=== PATIENT | male | born 1990 | race Caucasian/White ===

== ENCOUNTER → 2022-06-15 11:55 | Outpatient (CLI) | payer OTHER, SELFPAY ==
--- NOTE | 2022-06-15 12:11 | XR_ITS ---
FINAL REPORT CLINICAL HISTORY: PNEUMONIA, hx pneumonia, patient states he was recenltly hospitalized for pneumonia for 2 weeks , was intubated in the ICU, has been out 1 week , f/u FINDINGS: Two views of the chest were obtained. The heart size and pulmonary vascularity are within normal limits. The mediastinum is normal. There is lobular opacity in the right lower thorax, favor a loculated pleural effusion. The left lung is clear. There is no pneumothorax. The bony thorax is intact. IMPRESSION: Lobular opacity in the right lower thorax, favor a loculated pleural effusion. Recommend follow-up radiographs or chest CT. Reviewed, Interpreted and Dictated by Tavo Cobb III, MD Transcribed by Malaika Hardy Authenticated and [facility]
== END ==
PROVIDERS: PCP Nurse Practitioner Family; Visit Provider Nurse Practitioner Family
DX: J18.9 Pneumonia, unspecified organism (principal)
CPT/HCPCS: 71046

== ENCOUNTER → 2022-07-07 10:59 | Outpatient (CLI) | payer OTHER, SELFPAY ==
--- NOTE | 2022-07-07 11:06 | XR_ITS ---
FINAL REPORT CLINICAL HISTORY: PNEUMONIA COMPARISON: 06/15/2022 FINDINGS: TWO-VIEW CHEST The heart size is normal. The mediastinum is normal. There is a stable right base opacity, may represent localized infiltrate versus mass. There is no pneumothorax. IMPRESSION: Right opacity as above. Recommend follow-up radiographs or chest CT. Reviewed, Interpreted and Dictated by Tavo Cobb III, MD Transcribed by Mariangel West Authenticated and [facility]
== END ==
LOC: RAD 11:01
PROVIDERS: PCP Nurse Practitioner Family; Visit Provider Nurse Practitioner Family
DX: J18.9 Pneumonia, unspecified organism (principal)
CPT/HCPCS: 71046

== ENCOUNTER → 2022-07-20 07:06 | Outpatient (CLI) | payer OTHER, SELFPAY ==
--- NOTE | 2022-07-20 07:14 | CT_ITS ---
FINAL REPORT TECHNIQUE: Thin section axial images were obtained from the lung apices through the upper abdomen without contrast. This study was performed with techniques to keep radiation doses as low as reasonably achievable (ALARA). Individualized dose reduction techniques using automated exposure control or adjustment of mA and/or kV according to the patient's size were employed. CLINICAL HISTORY: ABN CXR FINDINGS: There are multiple small anterior mediastinal lymph nodes. No hilar lymphadenopathy is identified. There is a small right pleural effusion which extends to the fissure. There is rounded airspace disease in both the periphery of the right middle lobe and the periphery of the right lower lobe favored to represent pneumonia although infarct is not excluded. Limited, unenhanced evaluation of the upper abdomen is without acute abnormality. There is no acute osseous abnormality. IMPRESSION: Rounded opacity in the right middle lobe and right lower lobe, favor pneumonia but infarct is not excluded. Right pleural effusion. Consider follow up chest CT in 3 months. Reviewed, Interpreted and Dictated by Ailyn Yee MD Transcribed by Mariangel West Authenticated and [facility]
== END ==
LOC: RAD 07:06
PROVIDERS: PCP Nurse Practitioner Family; Visit Provider Nurse Practitioner Family
DX: R93.89 Abnormal findings on diagnostic imaging of other specified body structures (principal)
CPT/HCPCS: 71250

== ENCOUNTER 2022-09-04 12:37 | Emergency (ER) | payer OTHER, SELFPAY ==
[2022-09-04] VITALS (8 sets, daily range): BP systolic 85–114; BP diastolic 46–78; PULSE 78–95; RESP 17–20; TEMP 36.6; O2SAT 96–99; BMI 30.3
--- NOTE | 2022-09-04 12:58 | PC.NURSE ---
er md at bedside whend rounding on pts
--- NOTE | 2022-09-04 13:19 | PC.NURSE ---
Report received from YELENA Smith at bedside
[2022-09-04 13:37] LABS: Basophils % 0.8 % (0.1-2.0); Eosinophils # 0.1 K/mm3 (0.0-0.4); Eosinophils % 1.3 % (0.1-12.0); Hematocrit 43.6 % (42.0-52.0); Hemoglobin 14.3 g/dL (14.1-18.0); Lymphocytes # 1.5 K/mm3 (0.7-4.5); Lymphocytes % 37.8 % (10-50); Mean Corpuscular HGB Conc 32.7 g/dL (31.8-35.4); Mean Corpuscular Hemoglobin 29.8 pg (27.0-31.2); Mean Platelet Volume 9.8 fl (7.4-10.4); Monocytes # 0.3 K/mm3 (0.1-1.0); Monocytes % 7.7 % (1.7-9.3); Neutrophils # 2.1 K/mm3 (1.8-7.8); Neutrophils % 52.5 % (37.0-80.0); Platelet Count 148 K/mm3 (142-424); Red Blood Count 4.79 M/mm3 (4.60-6.20); Red Cell Distribution Width 20.1 % (11.5-17.5); White Blood Count 4.1 K/mm3 (4.8-10.8)
[2022-09-04 13:43] LABS: Alanine Aminotransferase 144 U/L (12-78); Albumin Level 3.4 g/dl (3.5-5.0); Albumin/Globulin Ratio 0.8 (1.1-1.8); Alkaline Phosphatase 383 U/L (38-126); Anion Gap 24.8 mEq/L (5-15); Aspartate Amino Transferase 282 U/L (17-59); Bilirubin,Direct 10.8 mg/dl (0.0-0.4); Bilirubin,Total 12.5 mg/dl (0.2-1.3); Blood Urea Nitrogen 35 mg/dl (9-20); Calcium 8.4 mg/dl (8.4-10.2); Carbon Dioxide 20 mmol/L (22.0-30.0); Chloride 97 mmol/L (98-107); Creatinine Clearance Estimated 59 mL/min (50-200); Estimated Glomerular Filt Rate 28 ml/min (>60); GFR (African American) 34 ML/MIN (>60); Globulin 4.2 g/dL (1.3-3.2); Glucose 104 mg/dl (74-100); Magnesium 1.7 mg/dl (1.6-2.3); Potassium 3.8 mmoL/L (3.5-5.1); Sodium 138 mmol/L (136-145); Total Protein,Serum 7.6 g/dl (6.3-8.2)
[2022-09-04 13:52] LABS: NT Pro Brain Natriuretic Pep. 1030 pg/mL (0-125)
--- NOTE | 2022-09-04 13:58 | PC.NURSE ---
mark from lab called with notification that it will take a little while for results of lipase due to viscosity of sample. notified
[2022-09-04 14:02] LABS: INR 1.03 (0.9-1.1); Prothrombin Time 11.1 seconds (10.1-12.5)
--- NOTE | 2022-09-04 14:02 | PC.NURSE ---
rounded on pt no complaints at this time, tap marixa at bs
[2022-09-04 14:04] LABS: Ethyl Alcohol < 10 mg/dl (0-10)
[2022-09-04 14:16] LABS: Lipase 94 U/L (23-300)
--- NOTE | 2022-09-04 14:17 | PC.NURSE ---
Dr Tomas spoke with Dr Nguyễn pt is to go to [facility]
--- NOTE | 2022-09-04 14:27 | HMH.EDGENADL ---
Discharge Plan Disposition Patient Disposition: Xfer Short-Term Hosp Condition: Good Prescriptions Prescriptions: No Action furosemide 40 mg tablet 40 mg PO DAILY Label Comments: TAKE 1 TABLET BY MOUTH ONCE DAILY metoprolol succinate 50 mg tablet extended release 24 hr 50 mg PO DAILY Label Comments: TAKE 1 TABLET BY MOUTH ONCE DAILY spironolactone 25 mg tablet 25 mg PO DAILY Label Comments: TAKE 1 TABLET BY MOUTH ONCE DAILY aspirin [Yair Chewable Aspirin] 81 mg tablet,chewable 81 mg PO DAILY Label Comments: CHEW AND SWALLOW 1 TABLET BY MOUTH ONCE DAILY Referrals Follow up/Referrals: Livia Sheriff APRN [Primary Care Provider] - See instructions Clinical Impressions Clinical Impression: Hepatorenal syndrome Stand Alone Forms Stand Alone Forms: Transfer Record - ED Discharge ED Provider: Julio Tomas General Adult HPI General Chief complaint: Weakness Stated complaint: Yellowing of skin, weakness Time Seen by Provider: 09/04/22 12:45 Mode of Arrival: Ambulatory Source of Information: Patient Limitations: No Limitations Description of Symptoms (Recalled from ER Triage Doc. by RN): pt to ed c/o generalized weakness and eye yellowing. pt reports he was recently hospitalized at [facility] for kidney failure. pt reports increased lethargy and reports he noticed his skin has been more yellow as well as his eyes. 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 He reports that he was recently admitted to [facility] for heart failure as well as issues with his liver. He says he was there for approximately 2 weeks before he was discharged. He says that he has been weak since being discharged but over the last day one of his relatives told him that they noted that his eyes were yellowing and that he should come in for evaluation. He says that he has been having a harder time staying awake over the last few weeks as well. At the outside hospital he was noted to have substantial changes in his ejection fraction as well as elevated liver enzymes. Denies any abdominal pain. No nausea or vomiting. He reports that his last drink was a while ago . Related Data Home Medications Medication Instructions Recorded Confirmed aspirin 81 mg chewable tablet 81 mg PO DAILY Heart health 09/04/22 09/04/22 (Yair Chewable Low Dose Aspirin) furosemide 40 mg tablet 40 mg PO DAILY Fluid 09/04/22 09/04/22 metoprolol succinate 50 mg 50 mg PO DAILY Heart rhythm 09/04/22 09/04/22 tablet,extended release 24 hr spironolactone 25 mg tablet 25 mg PO DAILY Fluid 09/04/22 09/04/22 Allergies Allergy/AdvReac Type Severity Reaction Status Date / Time No Known Allergies Allergy Verified 09/04/22 13:37 [facility] Disclaimer: The information contained in this section may have been updated after the patient was seen, as this information can be updated by other users. Social History Smoking Status: Current every day smoker alcohol intake: current current occupational status: employed Travel in the last 8 weeks: None ROS Obtained: Yes All systems reviewed & no additional complaints except as documented Physical Exam General General appearance: alert and in no apparent distress Head Head exam: atraumatic, normocephalic and normal inspection Eye Eye exam: Present PERRL and scleral icterus ENT ENT exam: Present normal exam, mucous membranes moist and normal external ear exam Neck Neck exam: Present normal inspection and trachea midline Chest Chest inspection: Present normal inspection and symmetric chest wall rise Respiratory Respiratory exam: Present normal lung sounds bilaterally; Absent respiratory distress Cardiovascular Cardiovascular exam: Present regular rate and normal rhythm Abdominal Exam Abdomi
--- NOTE | 2022-09-04 14:59 | PC.NURSE ---
Report called to YELENA Arias at [facility] [phone]. Patient going POV with his mother. Patient a/o x3, no signs/sx of alcohol withdrawal. VSS, NAD. Patient ambulatory to his mother's vehicle.
== END 2022-09-04 15:00 | disposition short-term general hospital (02) ==
PROVIDERS: Emergency Provider Student in an Organized Health Care Education/Training Program; PCP Nurse Practitioner Family
DX: K76.7 Hepatorenal syndrome (principal); F17.200 Nicotine dependence, unspecified, uncomplicated
CPT/HCPCS: 80053; 82248; 83690; 83735; 83880; 85025; 85610; 99285